=== PATIENT | male | born 1975 | race Caucasian/White ===

== ENCOUNTER 2017-01-22 11:04 | Emergency (ER) | payer OTHER ==
[~2017-01-22] VITALS: Ht 177.8 cm; Wt 75.7 kg
[~2017-01-22 11:04] MED LIST: ASPIR 8181 M1 PO; ASPIRIN325 MG; ASPIRIN325 MG PO; Aspirin E.C. PO; CARBATROL-ER200 MG PO; CARDIZEM CD,CA240 MG PO; Cardizem CD,Cartia X PO; DIASTAT ACUDIAL10 MG PR; DIAZEPAM5 MG PO; DILANTIN100 MG PO; FLOMAX0.4 MG PO; Flomax PO; KEPPRA750 MG PO; KLONOPIN1 MG PO; KlonoPIN PO; LAMICTAL100 MG PO; LAMICTAL200 MG PO; LAMOTRIGINE150 MG PO; LAMOTRIGINE200 MG PO; LOPRESSOR100 M1 PO; LaMICtal PO; Lopressor PO; MEGESTROL400 MG/10 PO; OXCARBAZEPINE300 MG PO; TAMSULOSIN HCL0.4 MG PO; TEGRETOL-XR,CA400 MG PO; TOPROL XL100 MG PO; TRILEPTAL600 MG PO; Urecholine PO; VALIUM5 MG PO
[2017-01-22 12:11] LABS: CHLORIDE 102 mEq/L (99-109); POTASSIUM 4.3 mEq/L (3.7-5.4); SODIUM 139 mEq/L (136-147)
[2017-01-22 12:13] LABS: GLUCOSE 118 mg/dL (70-99)
[2017-01-22 12:14] LABS: ANION GAP 14 MEQ/L (2-14)
[2017-01-22 12:15] LABS: TOTAL BILIRUBIN 0.4 mg/dL (0.0-1.0)
[2017-01-22 12:17] LABS: ALKALINE PHOSPHATASE 116 IU/L (3-129); GFR ESTIMATE (CALCULATED) > 59 mL/min/
[2017-01-22 12:18] LABS: UREA NITROGEN (BUN) 6 mg/dL (9-23)
[2017-01-22] MEDS ORDERED: VIMPAT200 MG PO (13:08)
[2017-01-22] MEDS ORDERED: DILANTIN100 MG PO (13:10)
[2017-01-22] MEDS ORDERED: SODIUM CHLORIDE PO (13:11)
[2017-01-22 13:19] LABS: MCH 31.5 PG (29.0-34.0); MCHC 34.4 G/DL (30.0-36.0); MCV 91.5 FL (86-99); PLATELET COUNT 275 K/uL (156-360); RBC DIS.WIDTH-CV 12.7 % (11.8-14.6); RBC DIS.WIDTH-SD 42.6 % (39-53); RED BLOOD COUNT 4.48 M/uL (4.00-5.50)
[2017-01-22] MEDS ORDERED: TRILEPTAL300 MG PO ×2 (13:26→13:27)
[2017-01-22] MEDS ORDERED: METOPROLOL TART50 MG PO (13:28)
[2017-01-22] MEDS ORDERED: NORCO 5/3251 TABLET PO (14:42)
[2017-01-22 15:02] VITALS: BP 165/100
== END 2017-01-22 15:19 | disposition home or self-care (01) ==
LOC: EME 11:04
DX: T78.40XA Allergy, unspecified, initial encounter (principal); J45.909 Unspecified asthma, uncomplicated; I10 Essential (primary) hypertension; R56.9 Unspecified convulsions; Z87.442 Personal history of urinary calculi; Z79.82 Long term (current) use of aspirin; Z87.891 Personal history of nicotine dependence
CPT/HCPCS: 80053; 85027; 99281; 99284; J1885

== ENCOUNTER 2017-09-02 07:03 | Emergency (ER) | payer OTHER ==
[~2017-09-02] VITALS: Ht 182.9 cm; Wt 86.0 kg
[~2017-09-02 07:03] MED LIST changes: +METOPROLOL TART50 MG PO; +NORCO 5/3251 TABLET PO; +SODIUM CHLORIDE PO; +TRILEPTAL300 MG PO; +VIMPAT200 MG PO
[2017-09-02 08:41] VITALS: BP 138/94
== END 2017-09-02 08:43 | disposition home or self-care (01) ==
LOC: EME 07:03
PROC: 3E0234Z Introduction of Serum, Toxoid and Vaccine into Muscle, Percutaneous Approach (ICD-10-PCS; principal; 2017-09-02)
DX: G40.909 Epilepsy, unspecified, not intractable, without status epilepticus (principal); S01.01XA Laceration without foreign body of scalp, initial encounter; W19.XXXA Unspecified fall, initial encounter; Z23 Encounter for immunization; I10 Essential (primary) hypertension; J45.909 Unspecified asthma, uncomplicated; F31.9 Bipolar disorder, unspecified; Z79.82 Long term (current) use of aspirin; Z88.0 Allergy status to penicillin; Z87.891 Personal history of nicotine dependence
CPT/HCPCS: 70450; 99281; 99284